=== PATIENT | female | born 1950 | race Two or more races ===

== ENCOUNTER 2017-08-06 09:19 | Outpatient (CLI) | payer OTHER | END 2017-08-06 09:24 | disposition home or self-care (01) | LOC: SONOGRAMA 09:19 | DX: E04.2 Nontoxic multinodular goiter (principal) ==

== ENCOUNTER 2018-04-06 05:57 | Day surgery (SDC) | payer OTHER | END 2018-04-06 12:15 | disposition home or self-care (01) | LOC: CIR.AMB 05:57 | DX: M65.4 Radial styloid tenosynovitis [de Quervain] (principal) ==

== ENCOUNTER 2019-01-25 05:00 | Day surgery (SDC) | payer OTHER ==
[~2019-01-25 05:00] MED LIST: AIMOVIG AU70 MG/1 ML; AVALIDE PO; CRESTOR20 MG PO; ELAVIL PO; SINGULAIR10 MG PO; SYNTHROID75 MCG PO; TROPOL PO
== END 2019-01-25 10:15 | disposition home or self-care (01) ==
LOC: CIR.AMB 05:00
DX: M67.441 Ganglion, right hand (principal); M65.311 Trigger thumb, right thumb

== ENCOUNTER 2019-10-27 09:32 | Outpatient (CLI) | payer OTHER | END 2019-10-27 09:41 | disposition home or self-care (01) | LOC: SONOGRAMA 09:32 | PROVIDERS: ATTEND Pathology Anatomic Pathology & Clinical Pathology | DX: E04.2 Nontoxic multinodular goiter (principal) ==